=== PATIENT | female | born 1975 | race Caucasian/White ===

== ENCOUNTER 2017-05-10 17:50 | Emergency (ER) | payer BC, SELFPAY ==
[2017-05-10 19:27] VITALS: BP 136/48; PULSE 92; RESP 18; TEMP 36.6; O2SAT 98; BMI 45.3
--- NOTE | 2017-05-10 19:50 | XR_ITS ---
XR chest 2V HISTORY: ITS.REASON: COUGH ORDERING PHYSICIAN: Emi Venegas PATIENT AGE: 41 years COMPARISON: 02/26/2016 FINDINGS: The heart size is normal. There is prominence of mediastinum and avel for underlying adenopathy. Chest CT with contrast may be of further value. There is evidence of old granulomatous disease. No lobar consolidation or collapse. IMPRESSION: Prominent mediastinum and avel suspicious for adenopathy. Consider chest CT with contrast for further evaluation
--- NOTE | 2017-05-10 19:50 | HMH.EDUTC ---
[facility] [place]ression: Pleurisy Disposition: Home, Self-Care Condition on Discharge: Good Instructions: Pleurisy, DI for Pleurisy Additional Instructions: Take medication as prescribed Return if needed Follow up with family doctor Due to home medication and past medical history, recommend following up with family doctor tomorrow for further treatment and evaluation Go straight to ER if you begin to have trouble breathing or any life threatening problems Referrals: Quin Gregory [Primary Care Provider] - Time of Disposition: 20:23 Medical Decision Making - Medical Records Medical records reviewed: Yes: I reviewed the patient's medical records. Vital Signs: 05/10/17 19:27 05/10/17 20:13 Temperature 97.9 F 97.1 F L Temperature Source Temporal Artery Scan Pulse Rate 82 Pulse Rate [Right] 92 H Respiratory Rate 18 18 Blood Pressure 132/88 Blood Pressure [Right Arm] 136/48 Blood Pressure Mean [Right Arm] 77 Blood Pressure Source [Right Arm] Automatic Cuff Blood Pressure Position [Right Arm] Sitting 02 Sat by Pulse Oximetry 98 Oxygen Delivery Method Room Air Orders (Tests/Meds): ORDERS Category Date Time Status CXR 2 view (NOT portable) [XR chest 2V] Stat Exams 05/10/17 19:50 Taken - Radiology Data #1 Image(s): Chest Image Reviewed: Yes I reviewed the patient's radiology image w/the ED provider Preliminary Findings: Normal/NAD, No Infiltrates Seen - Austyn Inquiry Pt receiving controlled substance: No Austyn was queried for this patient: No [facility] [place] - General Stated complaint: Left side back pain Mode of Arrival: Ambulatory Source of Information: Patient Limitations: No Limitations Description of Symptoms (Recalled from Triage Doc. by RN): BACK PAIN HEENT Symptoms (Recalled from RN notes): No Resp Symptoms (Recalled from RN notes): No Skin Symptoms (Recalled from RN notes): No MS Symptoms (Recalled from RN notes): Yes Functional Status (Recalled from RN notes): N - History of Present Illness Provider Complaint: Patient state that she noticed that she was having pain in her back area when she would take a deep breath States that she would have pain State that she has had this before when she had pleurisy and thinks she may have it again State that she came in to get checked - Related Data Allergies Allergy/AdvReac Type Severity Reaction Status Date / Time metronidazole [From FLAGYL] Allergy Unknown SOA Verified 05/10/17 19:33 Sulfa (Sulfonamide Allergy Unknown Verified 05/10/17 19:33 Antibiotics) [SULFA (SULFONAMIDE ANTIBIOTICS)] - Worker's Comp Is this a Worker's Comp case?: No [facility] History I have reviewed the patient's past medical history: Yes Other Surgeries: Yes: No Previous Surgery - Social History Smoking Status: Never smoker Alcohol Intake: never - Psychiatric History Expresses thoughts of harming self/others: None Suicide Plan Description: No Plan Family Hx:: Stroke, Cancer ROS Obtained: Yes All systems reviewed & no additional complaints Physical Exam - General General appearance: alert, in no apparent distress - Chest Chest inspection: Present: normal inspection, symmetric chest wall rise. Absent: tenderness - Respiratory Respiratory exam: Present: normal lung sounds bilaterally. Absent: respiratory distress - Cardiovascular Cardiovascular exam: Present: regular rate, normal rhythm. Absent: JVD - Abdominal Exam Abdominal exam: Present: soft, normal bowel sounds. Absent: distention, tenderness, guarding - Neurological Exam Neurological exam: Present: alert, oriented X3
--- NOTE | 2017-05-10 19:54 | ED_ITS ---
[facility] [place]ression: [place]isy Disposition: Home, Self-Care Condition on Discharge: Good Instructions: Pleurisy, DI for Pleurisy Additional Instructions: Take medication as prescribed Return if needed Follow up with family doctor Due to home medication and past medical history, recommend following up with family doctor tomorrow for further treatment and evaluation Go straight to ER if you begin to have trouble breathing or any life threatening problems Referrals: Quin Gregory [Primary Care Provider] - Time of Disposition: 20:23 Medical Decision Making - Medical Records Medical records reviewed: Yes: I reviewed the patient's medical records. Vital Signs: 05/10/17 19:27 05/10/17 20:13 Temperature 97.9 F 97.1 F L Temperature Source Temporal Artery Scan Pulse Rate 82 Pulse Rate [Right] 92 H Respiratory Rate 18 18 Blood Pressure 132/88 Blood Pressure [Right Arm] 136/48 Blood Pressure Mean [Right Arm] 77 Blood Pressure Source [Right Arm] Automatic Cuff Blood Pressure Position [Right Arm] Sitting 02 Sat by Pulse Oximetry 98 Oxygen Delivery Method Room Air Orders (Tests/Meds): ORDERS Category Date Time Status CXR 2 view (NOT portable) [XR chest 2V] Stat Exams 05/10/17 19:50 Taken - Radiology Data #1 Image(s): Chest Image Reviewed: Yes I reviewed the patient's radiology image w/the ED provider Preliminary Findings: Normal/NAD, No Infiltrates Seen - Austyn Inquiry Pt receiving controlled substance: No Austyn was queried for this patient: No [facility] [place] - General Stated complaint: Left side back pain Mode of Arrival: Ambulatory Source of Information: Patient Limitations: No Limitations Description of Symptoms (Recalled from Triage Doc. by RN): BACK PAIN HEENT Symptoms (Recalled from RN notes): No Resp Symptoms (Recalled from RN notes): No Skin Symptoms (Recalled from RN notes): No MS Symptoms (Recalled from RN notes): Yes Functional Status (Recalled from RN notes): N - History of Present Illness Provider Complaint: Patient state that she noticed that she was having pain in her back area when she would take a deep breath States that she would have pain State that she has had this before when she had pleurisy and thinks she may have it again State that she came in to get checked - Related Data Allergies Allergy/AdvReac Type Severity Reaction Status Date / Time metronidazole [From FLAGYL] Allergy Unknown SOA Verified 05/10/17 19:33 Sulfa (Sulfonamide Allergy Unknown Verified 05/10/17 19:33 Antibiotics) [SULFA (SULFONAMIDE ANTIBIOTICS)] - Worker's Comp Is this a Worker's Comp case?: No [facility] History I have reviewed the patient's past medical history: Yes Other Surgeries: Yes: No Previous Surgery - Social History Smoking Status: Never smoker Alcohol Intake: never - Psychiatric History Expresses thoughts of harming self/others: None Suicide Plan Description: No Plan Family Hx:: Stroke, Cancer ROS Obtained: Yes All systems reviewed & no additional complaints Physical Exam - General General appearance: alert, in no apparent distress - Chest Chest inspection: Present: normal inspection, symmetric chest wall rise. Absent : tenderness - Respiratory Respiratory exam: Present: norm
[2017-05-10 20:13] VITALS: BP 132/88; PULSE 82; RESP 18; TEMP 36.2
== END 2017-05-10 20:28 | disposition home or self-care (01) ==
PROVIDERS: Emergency Provider Nurse Practitioner; Family Provider Nurse Practitioner Family; PCP Family Medicine
DX: R09.1 Pleurisy (principal)
CPT/HCPCS: 71046; 99202

== ENCOUNTER → 2018-02-16 19:56 | Outpatient (CLI) | payer BC, SELFPAY | PROVIDERS: Visit Provider Nurse Practitioner Family | DX: J02.9 Acute pharyngitis, unspecified (principal) ==

== ENCOUNTER → 2019-12-10 09:12 | Outpatient (POV) | payer BC, SELFPAY | PROVIDERS: Visit Provider Dermatology | DX: Z00.00 Encounter for general adult medical examination without abnormal findings (principal) ==

== ENCOUNTER 2020-01-13 14:50 | Emergency (ER) | payer BC, SELFPAY ==
[2020-01-13 16:03] VITALS: BP 132/99; PULSE 120; RESP 21; TEMP 36.9; O2SAT 99; BMI 43.5
--- NOTE | 2020-01-13 16:19 | HMH.EDUTC ---
[facility] [place] Clinical Impression: Exposure to COVID-19 virus Disposition: Home, Self-Care Condition on Discharge: Good Instructions: Preventing the Spread of Coronavirus Discharge Instructions Additional Instructions: Drink plenty of fluids. Take tylenol for pain or fever. Follow up with your regular doctor. GO TO THE ER FOR ANY WORSENING SYMPTOMS Referrals: Quin Gregory [Primary Care Provider] - Forms: Work/School Release Time of Disposition: 16:26 Medical Decision Making - Medical Records Medical records reviewed: No: I reviewed the patient's medical records. - Austyn Inquiry Pt receiving controlled substance: No Vital Signs: 01/13/20 16:03 01/13/20 16:28 Temperature 98.4 F 98.4 F Temperature Source Oral Pulse Rate 120 H Pulse Rate [Right Brachial] 120 H Respiratory Rate 21 21 Blood Pressure 132/99 H Blood Pressure [Right Arm] 132/99 H Blood Pressure Mean [Right Arm] 110 Blood Pressure Source [Right Arm] Automatic Cuff Blood Pressure Position [Right Arm] Sitting 02 Sat by Pulse Oximetry 99 Oxygen Delivery Method Room Air Orders (Tests/Meds): ORDERS Category Date Time Status Covid-19 Nasal PCR Sendout [facility] Routine Lab 01/13/20 15:45 [place] [facility] [place] - General Stated complaint: covid exposure Time Seen by Provider: 01/13/20 16:19 Mode of Arrival: Ambulatory Source of Information: Patient Limitations: No Limitations Description of Symptoms (Recalled from Triage Doc. by RN): PATIENT C/O SINUS HEADACHE, DRAINAGE, AND COUGH, REQUESTING COVID TEST D/T TESTING POSITIVE ON MONDAY HEENT Symptoms (Recalled from RN notes): No Resp Symptoms (Recalled from RN notes): No Skin Symptoms (Recalled from RN notes): No MS Symptoms (Recalled from RN notes): No Functional Status (Recalled from RN notes): WNL - History of Present Illness Provider Complaint: She states that her tested positive for covid 3 days ago. She denies any symptoms, but she would like to be tested. - Related Data Previous Rx's Medication Instructions Recorded methylprednisolone 4 mg tablets in See Rx Instructions PO PER PKG DIR 02/16/18 a dose pack #21 tab Allergies Allergy/AdvReac Type Severity Reaction Status Date / Time metronidazole [From FLAGYL] Allergy Unknown SOA Verified 02/16/18 13:10 Sulfa (Sulfonamide Allergy Unknown Verified 02/16/18 13:10 Antibiotics) [SULFA (SULFONAMIDE ANTIBIOTICS)] - Worker's Comp Is this a Worker's Comp case?: No [facility] History - Hepatitis A Screen Drug use history?: No High risk sexual behaviors?: No History of sexually transmitted infection?: No Currently employed?: No Childcare worker?: No Do you have indoor plumbing?: Yes Do you have electricity?: Yes Attestation statement:: This patient has been screened for Hepatitis A risk factors. I have reviewed the patient's past medical history: Yes Laterality Cases: Left: Other Other Surgeries: Yes: No Previous Surgery, Cholecystectomy, , Hysterectomy-Total, Tubal Ligation Fractures: Yes - Social History Smoking Status: Never smoker Alcohol Intake: never Substance Use Type: denies use Occupational Status: other Family Hx:: Stroke, Cancer ROS Obtained: Yes All systems reviewed & no additional complaints - Constitutional Constitutional: Reports system reviewed and no additional complaints, except as docu - Eyes Eyes: Reports system reviewed and no additional complaints, except as docu - ENT Ears, Nose, Mouth, and Throat: Reports system reviewed and no additional complaints, except as docu - Cardiovascular Cardiovascular: Reports system reviewed and no additional complaints, except as docu - Respiratory Respiratory: Yes system reviewed and no additional complaints, except as docu - Gastrointestinal Gastrointestingal: Reports: system reviewed and no additional complaints, except as docu Physical Exam - General General appearance: casper
[2020-01-13 16:28] VITALS: BP 132/99; PULSE 120; RESP 21; TEMP 36.9; O2SAT 99
[2020-01-14 12:09] LABS: Adenovirus,PCR Not Detected (NotDetected); Bordetella Pertussis Not Detected (NotDetected); Chlamydophila Pneumoniae, PCR Not Detected (NotDetected); Coronavirus 229E Not Detected (NotDetected); Coronavirus NL63 Not Detected (NotDetected); Coronavirus OC43 Not Detected (NotDetected); Coronovirus HKU1,PCR Not Detected (NotDetected); Human Metapneumovirus Not Detected (NotDetected); Influenza A, PCR Not Detected (NotDetected); Influenza AH1, 2009 Not Detected (NotDetected); Influenza AH1, PCR Not Detected (NotDetected); Influenza AH3,PCR Not Detected (NotDetected); Influenza B, PCR Not Detected (NotDetected); Mycoplasma Pneumoniae, PCR Not Detected (NotDetected); Parainfluenza 1, PCR Not Detected (NotDetected); Parainfluenza 2, PCR Not Detected (NotDetected); Parainfluenza 3, PCR Not Detected (NotDetected); Parainfluenza 4, PCR Not Detected (NotDetected); Respiratory Syncytial Virus Not Detected (NotDetected); Rhinovirus/Enterovirus Not Detected (NotDetected)
[2020-01-14 13:35] LABS: Coronavirus 19, PCR Detected (NotDetected)
--- NOTE | 2020-01-14 14:53 | PC.NURSE ---
PATIENT NOTIFIED OF POSITIVE COVID RESULT AT THIS TIME
== END 2020-01-13 16:38 | disposition home or self-care (01) ==
PROVIDERS: Emergency Provider Nurse Practitioner Family; PCP Family Medicine
DX: U07.1 COVID-19 (principal); Z88.2 Allergy status to sulfonamides
CPT/HCPCS: 87581; 87633; 87798; 99201; U0003; U0004

== ENCOUNTER 2020-09-05 20:33 | Emergency (ER) | payer BC, SELFPAY ==
[2020-09-05 20:35] VITALS: BP 138/92; PULSE 105; RESP 20; TEMP 36.7; O2SAT 98; BMI 35.5
--- NOTE | 2020-09-05 20:51 | HMH.EDUTC ---
[facility] [place] Clinical Impression: Laceration Disposition: Home, Self-Care Condition on Discharge: Good Instructions: DI for Laceration Repair-Skin Glue, DI for Laceration Repair-Skin Closure Strips Additional Instructions: Do not pick off glue or steri strip allow to wear off Keep area dry Cover when out and leave open to air at home Return if needed Watch for signs of infection such as redness, swelling and drainage follow up immediately if seen Straight to ER if any life threatening symptoms Referrals: Quin Gregory [Primary Care Provider] - As needed Time of Disposition: 21:15 Medical Decision Making - Austyn Inquiry Pt receiving controlled substance: No Austyn was queried for this patient: No Vital Signs: 09/05/20 20:35 Temperature 98.0 F Temperature Source Temporal Artery Scan Pulse Rate [Right Brachial] 105 H Respiratory Rate 20 Blood Pressure [Right Arm] 138/92 H Blood Pressure Mean [Right Arm] 107 Blood Pressure Source [Right Arm] Automatic Cuff Blood Pressure Position [Right Arm] Sitting 02 Sat by Pulse Oximetry 98 Oxygen Delivery Method Room Air [facility] [place] - General Stated complaint: AO 09/05 2009 lac Left thumb Time Seen by Provider: 09/05/20 20:51 Mode of Arrival: Ambulatory Source of Information: Patient Limitations: No Limitations Description of Symptoms (Recalled from Triage Doc. by RN): PATIENT C/O LACERATION TO LEFT THUMB FROM ONION SLICER. UP TO DATE ON TDAP HEENT Symptoms (Recalled from RN notes): No Resp Symptoms (Recalled from RN notes): No Skin Symptoms (Recalled from RN notes): Yes MS Symptoms (Recalled from RN notes): No Functional Status (Recalled from RN notes): WNL - History of Present Illness Provider Complaint: Patient states that she was showing her how to use a new slicer when her hand slipped and she sliced the tip of her thumb States that she has a flap like laceration and she was holding pressure to it State that she takes blood thinners and she was worried when it was still bleeding a little so she came in States that she is up to date on tetanus - Related Data Home Medications Medication Instructions Recorded Confirmed Phentermine HCl [Adipex-P] 37.5 mg PO DAILY 09/05/20 09/05/20 Warfarin Sodium 5 mg PO DAILY 09/05/20 09/05/20 Allergies Allergy/AdvReac Type Severity Reaction Status Date / Time metronidazole [From FLAGYL] Allergy Unknown SOA Verified 02/16/18 13:10 Sulfa (Sulfonamide Allergy Unknown Verified 02/16/18 13:10 Antibiotics) [SULFA (SULFONAMIDE ANTIBIOTICS)] - Worker's Comp Is this a Worker's Comp case?: No [facility] History - Hepatitis A Screen Drug use history?: No High risk sexual behaviors?: No History of sexually transmitted infection?: No Currently employed?: No Childcare worker?: No Do you have indoor plumbing?: Yes Do you have electricity?: Yes Attestation statement:: This patient has been screened for Hepatitis A risk factors. I have reviewed the patient's past medical history: Yes Laterality Cases: Left: Other Other Surgeries: Yes: No Previous Surgery, Cholecystectomy, , Hysterectomy-Total, Tubal Ligation Fractures: Yes - Social History Smoking Status: Never smoker Alcohol Intake: never Substance Use Type: denies use Occupational Status: other Family Hx:: Stroke, Cancer ROS Obtained: Yes All systems reviewed & no additional complaints, Yes Systems reviewed as appropriate & no additional complaints - Constitutional Constitutional: Reports system reviewed and no additional complaints, except as docu - Eyes Eyes: Reports system reviewed and no additional complaints, except as docu - ENT Ears, Nose, Mouth, and Throat: Reports system reviewed and no additional complaints, except as docu - Cardiovascular Cardiovascular: Reports system reviewed and no additional complaints, except as docu - Respiratory Respiratory: Reports system reviewed and no additional complaints, except as
[2020-09-05 21:15] VITALS: BP 138/92; PULSE 105; RESP 20; TEMP 36.7; O2SAT 98
== END 2020-09-05 21:19 | disposition home or self-care (01) ==
PROVIDERS: Emergency Provider Nurse Practitioner; PCP Family Medicine
DX: S61.012A Laceration without foreign body of left thumb without damage to nail, initial encounter (principal); W26.8XXA Contact with other sharp object(s), not elsewhere classified, initial encounter; Y92.010 Kitchen of single-family (private) house as the place of occurrence of the external cause
CPT/HCPCS: 12001; 99202; G0463

== ENCOUNTER → 2021-03-12 09:11 | Outpatient (CLI) | payer BC, SELFPAY | PROVIDERS: PCP Family Medicine; Visit Provider Nurse Practitioner Family | DX: Z20.822 Contact with and (suspected) exposure to COVID-19 (principal) | CPT/HCPCS: C9803; U0003; U0005 ==

== ENCOUNTER → 2021-03-15 09:14 | Outpatient (CLI) | payer BC, SELFPAY | PROVIDERS: PCP Family Medicine; Visit Provider Nurse Practitioner | DX: Z20.822 Contact with and (suspected) exposure to COVID-19 (principal) | CPT/HCPCS: C9803; U0003; U0005 ==

== ENCOUNTER → 2022-04-01 10:22 | Outpatient (CLI) | payer BC, SELFPAY ==
--- NOTE | 2022-04-01 10:28 | XR_ITS ---
PROCEDURE INFORMATION: Exam: XR Right Hand Exam date and time: 04/01/2022 10:30 AM Age: 46 years old Clinical indication: Pain; Finger(s); Right; Additional info: Thumb pain TECHNIQUE: Imaging protocol: Radiologic exam of the Right hand. Views: 3 or more views. AP, lateral and oblique views COMPARISON: No relevant prior studies available. FINDINGS: Bones/joints: Normal. Soft tissues: Normal. IMPRESSION: There is no evidence of acute fracture or malalignment.
== END ==
PROVIDERS: PCP Family Medicine; Visit Provider Family Medicine
DX: M79.644 Pain in right finger(s) (principal)
CPT/HCPCS: 73130

== ENCOUNTER 2022-07-07 11:51 | Emergency (ER) | payer BC, SELFPAY ==
--- NOTE | 2022-07-07 11:56 | XR_ITS ---
FINAL REPORT CLINICAL HISTORY: pain after jamming into table COMPARISON: none FINDINGS: LEFT HAND: 3 views of the left hand were obtained. There is no acute fracture or dislocation. Postoperative changes in the ulna. Visualized joint spaces are normally aligned. Soft tissues are unremarkable. IMPRESSION: No acute bony abnormality. Reviewed, Interpreted and Dictated by Randall Conner III, MD Transcribed by Rosalie Wilson Authenticated and [facility]
--- NOTE | 2022-07-07 11:56 | XR_ITS ---
FINAL REPORT CLINICAL HISTORY: pain after jamming hand into table COMPARISON: none FINDINGS: LEFT WRIST Three views demonstrate no acute fracture or dislocation. There are postoperative changes in the ulna. The visualized joint spaces are normally aligned. The soft tissues are unremarkable. IMPRESSION: No acute bony abnormality. Reviewed, Interpreted and Dictated by Randall Conner III, MD Transcribed by Rosalie Wilson Authenticated and . [facility]
[2022-07-07 12:30] VITALS: BP 120/85; PULSE 103; RESP 18; TEMP 36.8; O2SAT 100; BMI 35.9
--- NOTE | 2022-07-07 12:44 | EXP.UTC ---
Discharge Plan Disposition Patient Disposition: Home, Self-Care Condition: Good Prescriptions Prescriptions: No Action amitriptyline 50 mg tablet 50 mg PO DAILY hydroxyzine HCl 25 mg tablet 25 mg PO DAILY bupropion HCl 300 mg tablet extended release 24 hr 300 mg PO DAILY Eliquis 2.5 mg tablet 2.5 mg PO DAILY Trulicity 1.5 mg/0.5 mL pen injector See Rx Instructions .ROUTE .COMPLEX Rx Instructions: . Referrals Follow up/Referrals: Quin Gregory [Primary Care Provider] - See instructions Activity Restrictions/Add. Instructions Additional Instructions/Restrictions: Rest the extremity, Elevate the extremity as tolerated while you are resting. Take ibuprofen for pain if you can take it Follow up with Dr. Caballero (orthopedics) or your orthopedic physician of choice. Sometimes there can be fractures that don't show up well on the first set of x-rays. So, you should follow up if you continue to have symptoms. I put in a referral but you need to call his office and schedule an appointment. Follow up with your regular doctor. GO TO THE ER FOR ANY WORSENING SYMPTOMS Clinical Impressions Clinical Impression: Finger sprain Discharge ED Provider: Kapil Cole [facility] General Stated complaint: AO@home 07/07 LT pinky pain Time Seen by Provider: 07/07/22 12:43 History of Present Illness Provider Complaint: She states that she accidentily bent her left fifth finger backwards today. She is having pain and swelling in that finger. She denies other injury. Related Data Home Medications Medication Instructions Recorded Confirmed amitriptyline 50 mg tablet 50 mg PO DAILY . 07/07/22 07/07/22 apixaban 2.5 mg tablet (Eliquis) 2.5 mg PO DAILY Blood thinner 07/07/22 07/07/22 bupropion HCl 300 mg 24 hr tablet, 300 mg PO DAILY . 07/07/22 07/07/22 extended release dulaglutide 1.5 mg/0.5 mL See Rx Instructions .Route 07/07/22 07/07/22 subcutaneous pen injector .COMPLEX . (Trulicity) hydroxyzine HCl 25 mg tablet 25 mg PO DAILY . 07/07/22 07/07/22 Allergies Allergy/AdvReac Type Severity Reaction Status Date / Time metronidazole [From FLAGYL] Allergy Unknown SOA Verified 07/07/22 12:49 Sulfa (Sulfonamide Allergy Unknown Verified 07/07/22 12:49 Antibiotics) [SULFA (SULFONAMIDE ANTIBIOTICS)] [facility] Disclaimer: The information contained in this section may have been updated after the patient was seen, as this information can be updated by other users. Social History Smoking Status: Never smoker alcohol intake: never substance use type: denies use current occupational status: other Travel in the last 8 weeks: None ROS Obtained: Yes All systems reviewed & no additional complaints except as documented Constitutional Constitutional: Denies chills and Denies fever(s) Eyes Eyes: Denies eye discharge ENT Ears, Nose, Mouth, and Throat: Denies dizziness, Denies otalgia and Denies sore throat Cardiovascular Cardiovascular: Denies chest pain Respiratory Respiratory: Denies shortness of breath, Denies chest congestion, Denies cough, Denies stridor and Denies wheezing Gastrointestinal Gastrointestingal: Denies nausea or vomiting Musculoskeletal Musculoskeletal: Reports as per HPI Integumentary/Breasts Skin/Breast: Denies rash Neurologic Neurologic: Denies dizziness and Denies paresthesias Allergic/Immunologic Allergic/Immunologic: Denies wheezing Physical Exam General General appearance: alert and in no apparent distress Head Head exam: atraumatic, normocephalic and normal inspection Eye Eye exam: Present normal appearance, PERRL and EOMI ENT ENT exam: Present normal exam, normal oropharynx, mucous membranes moist, TM's normal bilaterally and normal external ear exam Neck Neck exam: Present normal inspection, full ROM and trachea midline; Absent meningism
[2022-07-07 14:53] VITALS: BP 120/85; PULSE 103; RESP 18; TEMP 36.8; O2SAT 100
== END 2022-07-07 14:52 | disposition home or self-care (01) ==
PROVIDERS: Emergency Provider Nurse Practitioner Family; PCP Family Medicine
DX: S63.617A Unspecified sprain of left little finger, initial encounter (principal); X50.0XXA Overexertion from strenuous movement or load, initial encounter
CPT/HCPCS: 73110; 73130; 99212; 99214; G0463

== ENCOUNTER 2023-03-04 15:39 | Emergency (ER) | payer BC, SELFPAY ==
[2023-03-04 17:10] VITALS: BP 146/90; PULSE 87; RESP 19; TEMP 36.7; O2SAT 100; BMI 25.4
[2023-03-04 17:31] LABS: UTC Influenza A Antigen Negative (Negative)
[2023-03-04 17:32] LABS: UTC Influenza B Antigen Negative (Negative)
--- NOTE | 2023-03-04 17:50 | EXP.UTC ---
Discharge Plan Disposition Patient Disposition: Home, Self-Care Condition: Good Prescriptions Prescriptions: New methylprednisolone [Medrol (Matthias)] 4 mg tablets,dose pack See Rx Instructions .ROUTE .COMPLEX 6 Days Qty: 21 0RF Rx Instructions: 4 mg orally ;Medrol dose taper matthias azithromycin 250 mg tablet See Rx Instructions .ROUTE .COMPLEX Qty: 6 0RF Rx Instructions: For 250 mg dose pack: take 500 mg today (day 1), then 250 mg for 4 days (days 2-5). Hold cholesterol medication while taking. No Action bupropion HCl 300 mg tablet extended release 24 hr 300 mg PO DAILY Eliquis 2.5 mg tablet 2.5 mg PO DAILY phentermine 15 mg capsule 15 mg PO DAILY oxybutynin chloride 5 mg tablet extended release 24hr 5 mg PO DAILY Ozempic 1 mg/dose (4 mg/3 mL) pen injector 1 mg SQ WEEKLY Referrals Follow up/Referrals: Quin Gregory [Primary Care Provider] - See instructions Clinical Impressions Clinical Impression: Acute upper respiratory infection Instructions Patient Instructions: DI for Acute Bronchitis, DI for Sinusitis Discharge ED Provider: Marie Nguyen [facility] General Stated complaint: cough, congestion Mode of Arrival: Ambulatory Source of Information: Patient Limitations: No Limitations Time Seen by Provider: 03/04/23 17:39 Description of Symptoms (Recalled from Triage Doc. by RN): PATIENT C/O COUGH, RUNNY NOSE WITH GREEN DRAINAGE, HEADACHE, AND SINUS PAIN SINCE MONDAY HEENT Symptoms (Recalled from RN notes): Yes Resp Symptoms (Recalled from RN notes): Yes Skin Symptoms (Recalled from RN notes): No MS Symptoms (Recalled from RN notes): No Functional Status (Recalled from RN notes): WNL History of Present Illness Provider Complaint: Pt relates that she has had sinus pain with green drainage, coughing up green mucous, and a headache since Monday. She relates that she has taken OTC cold medication but this has not helped. Related Data Home Medications Medication Instructions Recorded Confirmed apixaban 2.5 mg tablet (Eliquis) 2.5 mg PO DAILY Blood thinner 07/07/22 03/04/23 bupropion HCl 300 mg 24 hr tablet, 300 mg PO DAILY Weight Loss 07/07/22 03/04/23 extended release oxybutynin chloride 5 mg 5 mg PO DAILY 03/04/23 03/04/23 tablet,extended release 24 hr phentermine 15 mg capsule 15 mg PO DAILY 03/04/23 03/04/23 semaglutide 1 mg/dose (4 mg/3 mL) 1 mg SQ WEEKLY 03/04/23 03/04/23 subcutaneous pen injector (Ozempic) Previous Rx's Medication Instructions Recorded azithromycin 250 mg tablet See Rx Instructions PO .COMPLEX #6 03/04/23 tabs methylprednisolone 4 mg tablets in See Rx Instructions .Route 03/04/23 a dose pack (Medrol (Matthias)) .COMPLEX 6 days #21 tabs Allergies Allergy/AdvReac Type Severity Reaction Status Date / Time metronidazole [From FLAGYL] Allergy Unknown SOA Verified 07/07/22 12:49 Sulfa (Sulfonamide Allergy Unknown Verified 07/07/22 12:49 Antibiotics) [SULFA (SULFONAMIDE ANTIBIOTICS)] Worker's Comp Is this a Worker's Comp case?: No [facility] Disclaimer: The information contained in this section may have been updated after the patient was seen, as this information can be updated by other users. Surgical History (Updated 03/04/23 @ 17:17 by Stephnaie Lopez RN) History of cholecystectomy History of hysterectomy Social History Smoking Status: Never smoker alcohol intake: never substance use type: denies use current occupational status: other Travel in the last 8 weeks: None ROS Obtained: Yes All systems reviewed & no additional complaints except as documented Constitutional Constitutional: Reports system reviewed and no additional complaints, except as documented, Reports body ache, Reports chills, Reports fatigue and Reports malaise Eyes Eyes: Reports system reviewed and no additional complaints, except as documented EN
[2023-03-04 17:55] VITALS: BP 126/77; PULSE 87; RESP 19; TEMP 36.7; O2SAT 100
== END 2023-03-04 17:59 | disposition home or self-care (01) ==
PROVIDERS: Emergency Provider Nurse Practitioner Family; PCP Family Medicine
DX: J20.9 Acute bronchitis, unspecified (principal); J01.90 Acute sinusitis, unspecified; R05.8 Other specified cough; R09.81 Nasal congestion; R51.9 Headache, unspecified; R53.81 Other malaise; M79.18 Myalgia, other site; R53.83 Other fatigue
CPT/HCPCS: 87804; 99212; 99214; G0463